=== PATIENT | male | born 1950 | race Caucasian/White ===

== ENCOUNTER 2018-10-16 04:26 | Inpatient (IN) | payer MEDICARE ==
[~2018-10-16] VITALS: Ht 170.2 cm; Wt 61.9 kg
--- NOTE | 2018-10-16 04:45 | NUR ---
FIRST CONTACT WITH PT. PT PRESENTS TO ED TOD STATING "I THINK I'M HAVING A HEART ATTACK". PT DENIES PREVIOUS CARDIAC HISTORY, BUT STATES "HEART DISEASE RUNS IN MY FAMILY". PT STATES HE IS HAVING 10/10 STERNAL CHEST PAIN WITH LEFT ARM RADIATION. ALL MONITORS IN PLACE. CALL LIGHT WITHIN REACH. AWAITING ORDERES.
--- NOTE | 2018-10-16 04:46 | NUR ---
PT'S GRAND DAUGHTER'S NUMBER [id number] MELO [phone]
[2018-10-16] MEDS ORDERED: ONDANSETRON ODT 4 MG ONE (05:06)
[2018-10-16] MEDS ORDERED: ASPIRIN 81 MG TABLET CHEW ONE (05:07)
--- NOTE | 2018-10-16 05:09 | NUR ---
PT MEDICATED PER EMAR. PT TOLERATED WELL.
[2018-10-16] MEDS ORDERED: ONDANSETRON ODT 4 MG PO ONE (05:30)
[2018-10-16] MEDS ORDERED: ASPIRIN 81 MG TABLET CHEW PO ONE (05:30)
[2018-10-16 05:33] LABS: MEAN CORPUSCULAR HEMOGLOBIN 33.7 pg (27.5-34.5); MEAN CORPUSCULAR HGB CONC 33.9 g/dL (33.2-36.2); MEAN CORPUSCULAR VOLUME 99.4 fL (81-97); MEAN PLATELET VOLUME 8.4 fL (7.4-10.4); PLATELET COUNT 265 x10^3/uL (130-400); RED BLOOD COUNT 5.03 x10^6/uL (4.38-5.82); RED CELL DISTRIBUTION WIDTH 13.6 % (9.4-14.8)
[2018-10-16] MEDS ORDERED: SODIUM CHLORIDE 0.9% 1,000 ML IV ONE (05:39)
[2018-10-16 05:40] LABS: ALBUMIN 3.8 g/dL (3.4-5.0); ANION GAP 13 mmol/L (5-15); CALCIUM 8.9 mg/dL (8.5-10.1); CHLORIDE 107 mmol/L (98-107); CREATININE 1.83 mg/dL (0.7-1.3)
[2018-10-16 05:53] LABS: TROPONIN I 0.222 ng/mL (0.000-0.045)
--- NOTE | 2018-10-16 05:56 | NUR ---
NS INFUSING AT THIS TIME. PT TOLERATED WELL.
[2018-10-16] MEDS ORDERED: SODIUM CHLORIDE FLUSH 10ML SYR IVF ONE (06:00)
[2018-10-16] MEDS ORDERED: SODIUM CHLORIDE 0.9% 1,000ML IVBOLUS ONE ×2 (06:00→08:00)
[2018-10-16 06:14] LABS: MD YES
[2018-10-16] MEDS ORDERED: GABA800T5 PO (06:15)
[2018-10-16 06:16] LABS: LYMPH#(MANUAL) 2.66 x10^3/uL (1-3.4); LYMPHS% (MANUAL) 10 % (22-44); METAMYELOCYTES# (MANUAL) 0.27 x10^3/uL (0-0); METAMYELOCYTES% (MANUAL) 1 % (0-1); MONOS#(MANUAL) 0.53 x10^3/uL (0.3-2.7); MONOS% (MANUAL) 2 % (2-9); SEG#(MANUAL) 23.14 x10^3/uL (1.8-6.8); SEGS% (MANUAL) 87 % (42-75)
[2018-10-16] MEDS ORDERED: HYDR-3245 PO (06:16)
[2018-10-16 06:17] LABS: <PLATELET ESTIMATE> ADEQUATE; <PLT MORPHOLOGY> NORMAL PLT MORPH
[2018-10-16] MEDS ORDERED: VENL150T PO (06:19)
[2018-10-16] MEDS ORDERED: MORPHINE SULFATE 4 MG/ML, 1ML ONE ×2 (06:24→07:54)
[2018-10-16] MEDS ORDERED: NITROGLYCERIN SINGLE TAB 0.4 MG SL ONE (06:24)
--- NOTE | 2018-10-16 06:28 | NUR ---
PT MEDICATED PER EMAR. PT TOLERATED WELL.
[2018-10-16 06:30] LABS: ALBUMIN 3.8 g/dL (3.4-5.0)
[2018-10-16] MEDS ORDERED: MORPHINE SULFATE 4 MG/ML, 1ML IVPush PRN (06:30)
[2018-10-16] MEDS ORDERED: HEPARIN 5,000 UNITS/ML, 1ML IV PRN (06:30)
[2018-10-16] MEDS ORDERED: HEPARIN 25,000 UNITS/500ML PMX 500 ML IV PRN (06:30)
[2018-10-16] MEDS ORDERED: NITROGLYCERIN SINGLE TAB 0.4 MG SL PRN (06:30)
[2018-10-16] MEDS ORDERED: HEPARIN 5,000 UNITS/ML, 1ML IV ONE ×2 (06:30→11:00)
[2018-10-16 06:35] LABS: BILIRUBIN, DIRECT 0.1 mg/dL (0.1-0.2); BILIRUBIN,INDIRECT 0.4 mg/dL (0.0-2.0); BILIRUBIN,TOTAL 0.5 mg/dL (0.2-1.0); TOTAL PROTEIN 8.1 g/dL (6.4-8.2)
[2018-10-16] MEDS ORDERED: HEPARIN 5,000 UNITS/ML, 1ML ONE (06:38)
[2018-10-16] MEDS ORDERED: HEPARIN 25,000 UNITS/500ML PMX 500 ML ONE (06:38)
[2018-10-16 06:42] LABS: ACETONE, SERUM Negative (Negative)
[2018-10-16] MEDS ORDERED: SODIUM CHLORIDE FLUSH 10ML SYR IVF PRN (07:00)
--- NOTE | 2018-10-16 07:11 | NUR ---
REPORT GIVEN TO SAMM LINTON.
--- NOTE | 2018-10-16 07:35 | NUR ---
Clarisa (pt's daughter) called, , asking for update. Pt gives verbal consent. Provided updated information. All questions answered.
[2018-10-16] MEDS ORDERED: PIPERACILLIN/TAZO/PMX 3.375GM 0 ML ONE (07:37)
[2018-10-16] MEDS ORDERED: MIDAZOLAM 1 MG/ML, 5ML ONE (08:00)
[2018-10-16] MEDS ORDERED: VANCOMYCIN PER PHARMACY MC ONE (08:00)
[2018-10-16] MEDS ORDERED: EPINEPHRINE 1 MG/ML, 1ML ONE (08:00)
[2018-10-16] MEDS ORDERED: SODIUM BICARB 8.4%, 50ML SYRINGE ONE ×3 (08:00→13:34)
[2018-10-16] MEDS ORDERED: ROCURONIUM 10 MG/ML,10ML ONE (08:00)
[2018-10-16] MEDS ORDERED: PROPOFOL 100 ML IV ONE (08:00)
[2018-10-16] MEDS ORDERED: PIPERACILLIN/TAZO/PMX 4.5GM 100 ML IVPB ONE (08:00)
[2018-10-16] MEDS ORDERED: VANCOMYCIN 1,200 MG in SODIUM CHLORIDE 0.9% 250 ML IV ONE (08:00)
--- NOTE | 2018-10-16 08:10 | NUR ---
Called and spoke to SHAILA Henderson. All questions answered. Pt ready to transfer to floor from ED.
[2018-10-16] MEDS ORDERED: ALBUTEROL/IPRATROPIUM 2.5MG/0.5MG, 3 ML NPPB ONE (08:30)
[2018-10-16] MEDS ORDERED: ALBUTEROL SULFATE 2.5 MG/3 ML NPPB ONE (08:35)
[2018-10-16 08:48] LABS: TROPONIN I 0.436 ng/mL (0.000-0.045)
[2018-10-16] MEDS ORDERED: KETOROLAC 30 MG/1 ML IVPush ONE (09:00)
[2018-10-16] MEDS: SODIUM CHLORIDE 0.9% 1,000 ML IV SCH ×2 (09:21→22:48)
[2018-10-16] MEDS ORDERED: PHARMACY MAY ADJ FOR RENAL FX MC PRN (09:30)
[2018-10-16] MEDS ORDERED: ACETAMINOPHEN 650 MG/20.3 ML UDC PO PRN (09:30)
[2018-10-16] MEDS ORDERED: ONDANSETRON 2MG/ML, 2ML IVPB PRN (09:30)
[2018-10-16] MEDS ORDERED: MORPHINE SULFATE 4 MG/ML, 1ML IV PRN (09:30)
[2018-10-16] MEDS ORDERED: NITROGLYCERIN 0.4 MG BOTTLE (25 TABS) SL PRN (09:30)
[2018-10-16] MEDS ORDERED: ALBUTEROL/IPRATROPIUM 2.5MG/0.5MG, 3 ML HHN SCH (10:00)
[2018-10-16] MEDS ORDERED: ALBUTEROL/IPRATROPIUM 2.5MG/0.5MG, 3 ML ONE (10:06)
--- NOTE | 2018-10-16 10:11 | NUR ---
Called SHAILA Mccarthy and provided report. All questions answered. Pt ready to transfer to floor.
--- NOTE | 2018-10-16 10:12 | NUR ---
Pt transfered to floor from ED with tech and ED RN and left with all personal belongings, [id number].
[2018-10-16 10:19] LABS: CHOL/HDL RATIO 3.7; LDL/HDL RATIO 2.2 (0.5-3.0)
[2018-10-16] MEDS ORDERED: [UNRECOGNIZED DRUG - REMARK] MC SCH (11:00)
[2018-10-16] MEDS: methylPREDNISolone SOD SUCC 125 MG/2 ML IVPush SCH ×2 (11:18→17:34)
[2018-10-16] MEDS: NICOTINE 14MG/24 HR PATCH.TD24 TD SCH (11:18)
[2018-10-16] MEDS ORDERED: AZITHROMYCIN 500 MG in SODIUM CHLORIDE 0.9% 250 ML IVPB SCH (11:30)
[2018-10-16] MEDS ORDERED: FUROSEMIDE 40 MG/4 ML ONE (12:02)
--- NOTE | 2018-10-16 12:22 | NUR ---
LATE NOTE ENTRY FOR 0845: Due to echocardiogram, and consultation with coin wrapping machine operator, pt's level of care change from Telemetry to CCU. Pt aware of change. Pt states verbal understanding. Pt is AOX4, skin is diaphoretic, warm, and intact. Pt is afebrile. Pt has productive occasional cough. Pt remains on oxygen via nasal cannula at 4.5 L oxygen to maintain SPO2% above 90%. NADN. No needs expressed. Pt provided blanket for comfort measures. Call light within reach. Pt remains connected to cardiac care nurse, NIBP, and continous pulse ox. PIV medications infusing per EMAR. Both bedrails up for safety measures.
[2018-10-16] MEDS ORDERED: CEFTRIAXONE PMX 1GM/50ML 50 ML IV SCH (12:30)
[2018-10-16] MEDS ORDERED: EPINEPHRINE 4 MG in SODIUM CHLORIDE 0.9% 246 ML IV PRN (12:30)
[2018-10-16] MEDS ORDERED: FUROSEMIDE 40 MG/4 ML IV ONE (12:30)
[2018-10-16] MEDS ORDERED: CODE BLUE RESPONSE XX ONE (12:34)
[2018-10-16] MEDS ORDERED: CALCIUM CHLORIDE 10%, 10ML SYR ONE (12:34)
[2018-10-16] MEDS ORDERED: EPINEPHRINE SYRINGE 0.1 MG/ML, 10ML ONE (12:34)
[2018-10-16 13:22] LABS: FIO2 100 %
[2018-10-16] MEDS ORDERED: LIDOCAINE-MPF 1%, 2ML ENDO PRN (13:30)
[2018-10-16] MEDS ORDERED: FENTANYL PF 100 MCG/2ML IVPush PRN (13:30)
[2018-10-16] MEDS ORDERED: SENNA 176 MG/5 ML ORAL SOL NG PRN (13:30)
[2018-10-16] MEDS ORDERED: SENNA/DOCUSATE TABLET NG PRN (13:30)
[2018-10-16] MEDS ORDERED: PHARMACY MAY ADJ FOR RENAL FX MC SCH (13:30)
[2018-10-16] MEDS ORDERED: DEXTROSE 4 GM TAB.CHEW PO PRN (13:30)
[2018-10-16] MEDS ORDERED: EPINEPHRINE 1 MG in SODIUM CHLORIDE 0.9% 249 ML IV PRN (13:30)
[2018-10-16] MEDS ORDERED: ALBUTEROL/IPRATROPIUM 2.5MG/0.5MG, 3 ML INLINE SCH (13:30)
[2018-10-16] MEDS ORDERED: BISACODYL 10 MG SUPP PR PRN (13:30)
[2018-10-16] MEDS ORDERED: GLUCAGON 1 MG IM PRN (13:30)
[2018-10-16] MEDS ORDERED: LACTULOSE 20 GM/30 ML UDC NG PRN (13:30)
[2018-10-16] MEDS ORDERED: DEXTROSE 50%, 50ML SYRINGE IVPush PRN (13:30)
[2018-10-16] MEDS ORDERED: SODIUM BICARB 8.4%, 50ML SYRINGE IVPush STA (13:53)
[2018-10-16] MEDS: HEPARIN 5,000 UNITS/ML, 1ML IV PRN (14:05)
[2018-10-16] MEDS ORDERED: SODIUM BICARBONATE 8.4% 150 MEQ in DEXTROSE 5% 1,000 ML IV SCH (14:30)
[2018-10-16] MEDS: ALBUTEROL/IPRATROPIUM 2.5MG/0.5MG, 3 ML INLINE SCH ×3 (14:31→22:22)
[2018-10-16 15:05] VITALS: BP 124/72
[2018-10-16 15:07] LABS: TRIGLYCERIDES 71 mg/dL (50-200)
[2018-10-16] MEDS: PIPERACILLIN/TAZO/PMX 3.375GM 50 ML IV SCH ×2 (15:30→22:48)
[2018-10-16] MEDS: GABAPENTIN 300 MG CAPSULE PO SCH ×2 (16:00→21:00)
[2018-10-16] MEDS ORDERED: INSULIN LISPRO 100 UNITS/ML, PEN SQ-INSULIN SCH ×2 (16:00→21:00)
[2018-10-16 16:45] LABS: MEAN CORPUSCULAR HGB CONC 32.9 g/dL (33.2-36.2); MEAN CORPUSCULAR VOLUME 100.4 fL (81-97); PLATELET COUNT 286 x10^3/uL (130-400); RED BLOOD COUNT 4.82 x10^6/uL (4.38-5.82); RED CELL DISTRIBUTION WIDTH 13.9 % (9.4-14.8)
--- NOTE | 2018-10-16 16:45 | NUR ---
TF goal recs: Promote 75 ml/hour on propofol and 80 ml/hour off propofol
[2018-10-16 16:49] LABS: ANION GAP 16 mmol/L (5-15); CALCIUM 7.9 mg/dL (8.5-10.1); CHLORIDE 107 mmol/L (98-107); CREATININE 2.36 mg/dL (0.7-1.3)
[2018-10-16] MEDS: PROPOFOL 100 ML IV PRN ×2 (16:59→21:34)
[2018-10-16 17:18] LABS: MD YES
[2018-10-16 17:20] LABS: BAND#(MANUAL) 0.29 x10^3/uL; BANDS%(MANUAL) 1 % (0-7); LYMPH#(MANUAL) 0.87 x10^3/uL (1-3.4); LYMPHS% (MANUAL) 3 % (22-44); MONOS#(MANUAL) 0.29 x10^3/uL (0.3-2.7); MONOS% (MANUAL) 1 % (2-9); SEG#(MANUAL) 27.65 x10^3/uL (1.8-6.8); SEGS% (MANUAL) 95 % (42-75)
[2018-10-16 17:21] LABS: <PLATELET ESTIMATE> ADEQUATE; <PLT MORPHOLOGY> NORMAL PLT MORPH
[2018-10-16] MEDS ORDERED: VASOPRESSIN 100 UNIT in SODIUM CHLORIDE 0.9% 495 ML IV PRN (17:30)
[2018-10-16] MEDS: NOREPINEPHRINE 4 MG in SODIUM CHLORIDE 0.9% 246 ML IV PRN (17:46)
[2018-10-16] MEDS: ATORVASTATIN 40 MG TABLET PO SCH (21:00)
[2018-10-16] MEDS: SODIUM CHLORIDE FLUSH 10ML SYR IVF SCH (21:34)
[2018-10-16] MEDS: INSULIN LISPRO 100 UNITS/ML, PEN SQ-INSULIN SCH (21:37)
[2018-10-16] MEDS ORDERED: ACETAMINOPHEN 650 MG SUPP PR PRN (23:00)
[2018-10-17] MEDS: ALBUTEROL/IPRATROPIUM 2.5MG/0.5MG, 3 ML INLINE SCH ×6 (02:03→22:46)
[2018-10-17] MEDS: methylPREDNISolone SOD SUCC 125 MG/2 ML IVPush SCH ×3 (02:09→17:31)
[2018-10-17] MEDS: NOREPINEPHRINE 4 MG in SODIUM CHLORIDE 0.9% 246 ML IV PRN (02:57)
[2018-10-17 03:51] LABS: ALANINE AMINOTRANSFERASE 200 U/L (12-78); ALBUMIN 2.5 g/dL (3.4-5.0); ANION GAP 11 mmol/L (5-15); CHLORIDE 109 mmol/L (98-107)
[2018-10-17 03:53] LABS: ALKALINE PHOSPHATASE 75 U/L (45-117); BILIRUBIN,TOTAL 0.3 mg/dL (0.2-1.0); TOTAL PROTEIN 5.5 g/dL (6.4-8.2)
[2018-10-17 04:27] LABS: MEAN CORPUSCULAR HGB CONC 33.8 g/dL (33.2-36.2); MEAN CORPUSCULAR VOLUME 97.8 fL (81-97); MEAN PLATELET VOLUME 8.9 fL (7.4-10.4); PLATELET COUNT 202 x10^3/uL (130-400); RED BLOOD COUNT 4.34 x10^6/uL (4.38-5.82); RED CELL DISTRIBUTION WIDTH 13.1 % (9.4-14.8)
[2018-10-17] MEDS: INSULIN LISPRO 100 UNITS/ML, PEN SQ-INSULIN SCH ×7 (04:43→21:44)
[2018-10-17] MEDS: ASPIRIN 325 MG TABLET EC PO SCH (04:44)
[2018-10-17 05:25] LABS: MD YES
[2018-10-17 05:27] LABS: <PLATELET ESTIMATE> ADEQUATE; <PLT MORPHOLOGY> NORMAL PLT MORPH; ANISOCYTOSIS 1+; BAND#(MANUAL) 0.37 x10^3/uL; BANDS%(MANUAL) 2 % (0-7); LYMPHS% (MANUAL) 6 % (22-44); MONOS#(MANUAL) 0.18 x10^3/uL (0.3-2.7); MONOS% (MANUAL) 1 % (2-9); SEG#(MANUAL) 16.65 x10^3/uL (1.8-6.8); SEGS% (MANUAL) 91 % (42-75)
[2018-10-17] MEDS: PIPERACILLIN/TAZO/PMX 3.375GM 50 ML IV SCH ×3 (06:16→22:40)
[2018-10-17] MEDS: PROPOFOL 100 ML IV PRN ×2 (06:22→23:23)
[2018-10-17] MEDS ORDERED: SODIUM CHLORIDE 0.9% 1,000 ML IV SCH (08:30)
[2018-10-17] MEDS ORDERED: VENLAFAXINE HCL 125 MG PO SCH (09:00)
[2018-10-17] MEDS ORDERED: FAMOTIDINE 20 MG/2 ML IV SCH (09:00)
[2018-10-17] MEDS: GABAPENTIN 300 MG CAPSULE PO SCH ×3 (09:28→21:19)
[2018-10-17] MEDS: PANTOPRAZOLE 40 MG IV IV SCH (09:28)
[2018-10-17] MEDS: NICOTINE 14MG/24 HR PATCH.TD24 TD SCH (09:28)
[2018-10-17] MEDS: VENLAFAXINE 75 MG CAP ER PO SCH (09:29)
[2018-10-17] MEDS: SODIUM CHLORIDE FLUSH 10ML SYR IVF SCH ×2 (09:29→21:20)
[2018-10-17] MEDS ORDERED: SODIUM CHLORIDE 0.9%, 500ML IVBOLUS ONE (12:00)
[2018-10-17] MEDS ORDERED: SODIUM CHLORIDE 0.9% 500 ML IV ONE (12:00)
[2018-10-17] MEDS: HEPARIN 25,000 UNITS/500ML PMX 500 ML IV PRN (17:13)
[2018-10-17] MEDS: ATORVASTATIN 40 MG TABLET PO SCH (21:19)
[2018-10-18] MEDS: ALBUTEROL/IPRATROPIUM 2.5MG/0.5MG, 3 ML INLINE SCH ×6 (02:06→22:15)
[2018-10-18] MEDS: methylPREDNISolone SOD SUCC 125 MG/2 ML IVPush SCH ×3 (02:34→17:58)
[2018-10-18] MEDS: INSULIN LISPRO 100 UNITS/ML, PEN SQ-INSULIN SCH ×8 (03:30→21:49)
[2018-10-18 05:10] LABS: ALANINE AMINOTRANSFERASE 168 U/L (12-78); ALBUMIN 2.5 g/dL (3.4-5.0); ANION GAP 11 mmol/L (5-15); CALCIUM 6.5 mg/dL (8.5-10.1); CHLORIDE 109 mmol/L (98-107); CREATININE 2.08 mg/dL (0.7-1.3)
[2018-10-18 05:12] LABS: ALKALINE PHOSPHATASE 54 U/L (45-117); BILIRUBIN,TOTAL 0.4 mg/dL (0.2-1.0); TOTAL PROTEIN 5.4 g/dL (6.4-8.2)
[2018-10-18 05:19] LABS: MEAN CORPUSCULAR HEMOGLOBIN 33.3 pg (27.5-34.5); MEAN CORPUSCULAR HGB CONC 33.7 g/dL (33.2-36.2); MEAN CORPUSCULAR VOLUME 98.8 fL (81-97); MEAN PLATELET VOLUME 9.6 fL (7.4-10.4); PLATELET COUNT 150 x10^3/uL (130-400); RED BLOOD COUNT 3.95 x10^6/uL (4.38-5.82); RED CELL DISTRIBUTION WIDTH 13.9 % (9.4-14.8)
[2018-10-18] MEDS: ASPIRIN 325 MG TABLET EC PO SCH (06:00)
[2018-10-18 06:04] LABS: BASOPHILS # (AUTO) 0.01 x10^3/uL (0-0.1); BASOPHILS % (AUTO) 0 % (0-1); EOSINOPHILS % (AUTO) 0 % (1-7); LYMPHOCYTES # (AUTO) 0.88 x10^3/uL (1-3.4); LYMPHOCYTES % (AUTO) 4 % (22-44); MD SCAN; MONOCYTES # (AUTO) 0.58 x10^3/uL (0.2-0.8); MONOCYTES % (AUTO) 3 % (2-9); NEUTROPHILS # (AUTO) 20.87 x10^3/uL (1.8-6.8); NEUTROPHILS % (AUTO) 93 % (42-75)
[2018-10-18] MEDS: PIPERACILLIN/TAZO/PMX 3.375GM 50 ML IV SCH ×3 (06:19→22:30)
[2018-10-18] MEDS ORDERED: POTASSIUM CHLORIDE 20 MEQ TAB.ER.PRT PO ONE ×2 (06:30→13:00)
[2018-10-18] MEDS: PROPOFOL 100 ML IV PRN ×3 (06:41→21:46)
[2018-10-18] MEDS: SODIUM CHLORIDE FLUSH 10ML SYR IVF SCH ×2 (08:44→21:45)
[2018-10-18] MEDS: NICOTINE 14MG/24 HR PATCH.TD24 TD SCH (08:44)
[2018-10-18] MEDS: PANTOPRAZOLE 40 MG IV IV SCH (08:44)
[2018-10-18] MEDS: GABAPENTIN 300 MG CAPSULE PO SCH ×3 (08:45→21:45)
[2018-10-18] MEDS: VENLAFAXINE 75 MG CAP ER PO SCH (08:45)
[2018-10-18] MEDS ORDERED: FUROSEMIDE 20 MG/2 ML IV ONE (09:00)
[2018-10-18] MEDS ORDERED: DEXMEDETOMIDINE 1,000 MCG in SODIUM CHLORIDE 0.9% 240 ML IV PRN (09:30)
[2018-10-18] MEDS ORDERED: FUROSEMIDE 40 MG/4 ML IV ONE (13:30)
[2018-10-18] MEDS ORDERED: NOREPINEPHRINE 1 MG/ML, 4ML ONE (15:05)
[2018-10-18] MEDS: NOREPINEPHRINE 4 MG in SODIUM CHLORIDE 0.9% 246 ML IV PRN (16:29)
[2018-10-18] MEDS: LACTOBACILLUS 1GM/ PACKET NG SCH ×2 (16:35→21:45)
[2018-10-18] MEDS: ATORVASTATIN 40 MG TABLET PO SCH (21:45)
[2018-10-18] MEDS: HEPARIN 25,000 UNITS/500ML PMX 500 ML IV PRN (22:36)
[2018-10-19] MEDS: ALBUTEROL/IPRATROPIUM 2.5MG/0.5MG, 3 ML INLINE SCH ×3 (01:57→10:00)
[2018-10-19] MEDS: methylPREDNISolone SOD SUCC 125 MG/2 ML IVPush SCH ×3 (02:29→18:13)
[2018-10-19] MEDS: INSULIN LISPRO 100 UNITS/ML, PEN SQ-INSULIN SCH ×8 (04:45→21:44)
[2018-10-19 05:09] LABS: ALANINE AMINOTRANSFERASE 173 U/L (12-78); ALBUMIN 2.7 g/dL (3.4-5.0); ANION GAP 6 mmol/L (5-15); CALCIUM 6.4 mg/dL (8.5-10.1); CHLORIDE 110 mmol/L (98-107)
[2018-10-19 05:11] LABS: ALKALINE PHOSPHATASE 60 U/L (45-117); BILIRUBIN,TOTAL 0.6 mg/dL (0.2-1.0); TOTAL PROTEIN 5.4 g/dL (6.4-8.2); TRIGLYCERIDES 125 mg/dL (50-200)
[2018-10-19 05:22] LABS: MEAN CORPUSCULAR HEMOGLOBIN 32.5 pg (27.5-34.5); MEAN CORPUSCULAR HGB CONC 32.8 g/dL (33.2-36.2); MEAN CORPUSCULAR VOLUME 98.9 fL (81-97); MEAN PLATELET VOLUME 9.5 fL (7.4-10.4); PLATELET COUNT 116 x10^3/uL (130-400); RED BLOOD COUNT 3.69 x10^6/uL (4.38-5.82); RED CELL DISTRIBUTION WIDTH 13.8 % (9.4-14.8)
[2018-10-19] MEDS: ASPIRIN 325 MG TABLET EC PO SCH (06:05)
[2018-10-19] MEDS: PIPERACILLIN/TAZO/PMX 3.375GM 50 ML IV SCH ×3 (06:05→22:55)
[2018-10-19 06:09] LABS: BASOPHILS # (AUTO) 0.07 x10^3/uL (0-0.1); BASOPHILS % (AUTO) 0 % (0-1); EOSINOPHILS # (AUTO) 0.01 x10^3/uL (0-0.4); EOSINOPHILS % (AUTO) 0 % (1-7); LYMPHOCYTES # (AUTO) 0.72 x10^3/uL (1-3.4); LYMPHOCYTES % (AUTO) 5 % (22-44); MONOCYTES # (AUTO) 0.41 x10^3/uL (0.2-0.8); MONOCYTES % (AUTO) 3 % (2-9); NEUTROPHILS # (AUTO) 13.91 x10^3/uL (1.8-6.8); NEUTROPHILS % (AUTO) 92 % (42-75)
[2018-10-19 06:10] LABS: MD SCAN
[2018-10-19] MEDS: HEPARIN 5,000 UNITS/ML, 1ML IV PRN (06:33)
[2018-10-19] MEDS ORDERED: POTASSIUM CHLORIDE 10% 40 MEQ/30 ML UDC NG ONE (08:30)
[2018-10-19] MEDS: VENLAFAXINE 75 MG CAP ER PO SCH (08:34)
[2018-10-19] MEDS: LACTOBACILLUS 1GM/ PACKET NG SCH ×3 (08:34→21:19)
[2018-10-19] MEDS: FUROSEMIDE 40 MG/4 ML IV SCH ×3 (08:34→21:19)
[2018-10-19] MEDS: GABAPENTIN 300 MG CAPSULE PO SCH ×3 (08:34→21:19)
[2018-10-19] MEDS: SODIUM CHLORIDE FLUSH 10ML SYR IVF SCH ×2 (08:34→21:20)
[2018-10-19] MEDS: PANTOPRAZOLE 40 MG IV IV SCH (08:34)
[2018-10-19] MEDS: NICOTINE 14MG/24 HR PATCH.TD24 TD SCH (08:34)
[2018-10-19] MEDS: POTASSIUM CHLORIDE 20 MEQ PACKET PO SCH ×2 (09:30→15:51)
[2018-10-19] MEDS: ALBUTEROL/IPRATROPIUM 2.5MG/0.5MG, 3 ML NPPB SCH ×4 (11:00→23:00)
[2018-10-19 11:03] LABS: HIT RESULT POSITIVE (NEGATIVE)
[2018-10-19] MEDS: QUETIAPINE 25MG TABLET PO SCH ×2 (11:49→21:20)
[2018-10-19] MEDS: BUDESONIDE 0.5 MG/2 ML INHA INH SCH (19:11)
[2018-10-19] MEDS: ATORVASTATIN 40 MG TABLET PO SCH (21:19)
[2018-10-20] MEDS: ALBUTEROL/IPRATROPIUM 2.5MG/0.5MG, 3 ML NPPB SCH ×3 (02:04→10:23)
[2018-10-20] MEDS: methylPREDNISolone SOD SUCC 125 MG/2 ML IVPush SCH ×2 (02:45→08:37)
[2018-10-20] MEDS: INSULIN LISPRO 100 UNITS/ML, PEN SQ-INSULIN SCH ×5 (04:00→16:29)
[2018-10-20 04:45] LABS: BASOPHILS # (AUTO) 0.05 x10^3/uL (0-0.1); BASOPHILS % (AUTO) 0 % (0-1); EOSINOPHILS # (AUTO) 0.02 x10^3/uL (0-0.4); EOSINOPHILS % (AUTO) 0 % (1-7); LYMPHOCYTES # (AUTO) 1.01 x10^3/uL (1-3.4); LYMPHOCYTES % (AUTO) 7 % (22-44); MD NO; MEAN CORPUSCULAR HEMOGLOBIN 33.5 pg (27.5-34.5); MEAN CORPUSCULAR HGB CONC 33.7 g/dL (33.2-36.2); MEAN CORPUSCULAR VOLUME 99.3 fL (81-97); MEAN PLATELET VOLUME 9.9 fL (7.4-10.4); MONOCYTES # (AUTO) 0.29 x10^3/uL (0.2-0.8); MONOCYTES % (AUTO) 2 % (2-9); NEUTROPHILS # (AUTO) 13.85 x10^3/uL (1.8-6.8); NEUTROPHILS % (AUTO) 91 % (42-75); PLATELET COUNT 112 x10^3/uL (130-400); RED CELL DISTRIBUTION WIDTH 13.9 % (9.4-14.8)
[2018-10-20 04:56] LABS: ANION GAP 9 mmol/L (5-15); CALCIUM 6.8 mg/dL (8.5-10.1); CHLORIDE 107 mmol/L (98-107)
[2018-10-20] MEDS: OXYcodone IR 5MG TABLET PO PRN ×2 (05:55→12:01)
[2018-10-20] MEDS ORDERED: ASPIRIN 81 MG TABLET EC PO SCH (06:00)
[2018-10-20] MEDS: PIPERACILLIN/TAZO/PMX 3.375GM 50 ML IV SCH ×2 (06:34→14:13)
[2018-10-20] MEDS: BUDESONIDE 0.5 MG/2 ML INHA INH SCH (06:51)
[2018-10-20] MEDS: LACTOBACILLUS 1GM/ PACKET NG SCH ×2 (08:34→16:20)
[2018-10-20] MEDS: GABAPENTIN 300 MG CAPSULE PO SCH ×2 (08:35→16:20)
[2018-10-20] MEDS: VENLAFAXINE 75 MG CAP ER PO SCH (08:35)
[2018-10-20] MEDS: NICOTINE 14MG/24 HR PATCH.TD24 TD SCH (08:36)
[2018-10-20] MEDS: SODIUM CHLORIDE FLUSH 10ML SYR IVF SCH (08:38)
[2018-10-20] MEDS ORDERED: POTASSIUM CHLORIDE 20 MEQ TAB.ER.PRT PO ONE (09:00)
[2018-10-20] MEDS ORDERED: FONDAPARINUX 2.5 MG/0.5 ML SQ SCH (09:00)
[2018-10-20] MEDS: CARVEDILOL 3.125 MG TABLET PO SCH ×2 (09:49→17:10)
[2018-10-20] MEDS: FUROSEMIDE 40 MG/4 ML IV SCH ×2 (09:50→17:10)
[2018-10-20] MEDS ORDERED: EPINEPHRINE SYRINGE 0.1 MG/ML, 10ML ONE ×3 (15:00→17:55)
[2018-10-20] MEDS ORDERED: ATROPINE SYRINGE 0.1 MG/ML, 10ML ONE (15:00)
[2018-10-20] MEDS ORDERED: PANTOPRAZOLE 20MG TABLET PO SCH (16:00)
[2018-10-20] MEDS ORDERED: CODE BLUE RESPONSE XX ONE (17:55)
[2018-10-20] MEDS ORDERED: VECURONIUM 10 MG ONE (17:55)
[2018-10-20] MEDS ORDERED: SODIUM BICARBONATE 1 MEQ/ML, 50ML VIAL ONE (17:55)
[2018-10-20] MEDS ORDERED: CALCIUM CHLORIDE 10%, 10ML SYR ONE (17:55)
[2018-10-20] MEDS ORDERED: methylPREDNISolone SOD SUCC 40 MG/ML IVPush SCH (18:00)
[2018-10-20] MEDS ORDERED: EPINEPHRINE 2 MG in SODIUM CHLORIDE 0.9% 248 ML IV PRN ×2 (18:15→19:30)
[2018-10-20] MEDS ORDERED: FENTANYL PF 100 MCG/2ML IVPush ONE (18:15)
[2018-10-20] MEDS ORDERED: FENTANYL PF 100 MCG/2ML ONE (18:15)
[2018-10-20] MEDS ORDERED: PROPOFOL 0 ML IV ONE (18:20)
[2018-10-20] MEDS ORDERED: VECURONIUM 10 MG IVPush ONE (18:20)
[2018-10-20] MEDS ORDERED: morphine SULFATE 10 MG/ML, 1ML ONE (18:50)
[2018-10-20] MEDS ORDERED: morphine SULFATE 10 MG/ML, 1ML IVPush ONE (18:50)
[2018-10-20] MEDS ORDERED: morphine SULFATE 10 MG/ML, 1ML IV STA (19:08)
[2018-10-20] MEDS ORDERED: LORazepam 2 MG/ML, 1ML IVPush PRN ×2 (19:30)
[2018-10-20] MEDS ORDERED: morphine SULFATE 10 MG/ML, 1ML IVPush PRN ×2 (19:30)
[2018-10-20] MEDS ORDERED: ATROPINE OPHTH SOLN 1%, 5ML PO PRN (19:30)
== END 2018-10-20 22:03 | disposition expired | DRG 871 ==
LOC: ED 06:31 → EDIP 06:32 → ED 06:40 → CCU 10:27
PROVIDERS: ADMIT Internal Medicine; ATTEND Internal Medicine
PROC: 5A12012 Performance of Cardiac Output, Single, Manual (ICD-10-PCS; 2018-10-16)
PROC: 03HY32Z Insertion of Monitoring Device into Upper Artery, Percutaneous Approach (ICD-10-PCS; 2018-10-16)
PROC: 4A133B1 Monitoring of Arterial Pressure, Peripheral, Percutaneous Approach (ICD-10-PCS; 2018-10-16)
PROC: 4A133J1 Monitoring of Arterial Pulse, Peripheral, Percutaneous Approach (ICD-10-PCS; 2018-10-16)
PROC: 0BH17EZ Insertion of Endotracheal Airway into Trachea, Via Natural or Artificial Opening (ICD-10-PCS; principal; 2018-10-18)
PROC: 5A1935Z Respiratory Ventilation, Less than 24 Consecutive Hours (ICD-10-PCS; 2018-10-18)
PROC: 02HV33Z Insertion of Infusion Device into Superior Vena Cava, Percutaneous Approach (ICD-10-PCS; 2018-10-18)
PROC: B548ZZA Ultrasonography of Superior Vena Cava, Guidance (ICD-10-PCS; 2018-10-18)
DX: A41.9 Sepsis, unspecified organism (principal); J18.9 Pneumonia, unspecified organism; J96.01 Acute respiratory failure with hypoxia; I21.4 Non-ST elevation (NSTEMI) myocardial infarction; N17.0 Acute kidney failure with tubular necrosis; K72.00 Acute and subacute hepatic failure without coma; R65.21 Severe sepsis with septic shock; G93.41 Metabolic encephalopathy; I50.43 Acute on chronic combined systolic (congestive) and diastolic (congestive) heart failure; E87.2 Acidosis; Z99.11 Dependence on respirator [ventilator] status; J44.0 Chronic obstructive pulmonary disease with (acute) lower respiratory infection; I42.9 Cardiomyopathy, unspecified; J44.1 Chronic obstructive pulmonary disease with (acute) exacerbation; I20.0 Unstable angina; G89.29 Other chronic pain; J84.89 Other specified interstitial pulmonary diseases; G47.33 Obstructive sleep apnea (adult) (pediatric); Z66 Do not resuscitate; Z51.5 Encounter for palliative care; F17.210 Nicotine dependence, cigarettes, uncomplicated; T38.0X5A Adverse effect of glucocorticoids and synthetic analogues, initial encounter; I27.20 Pulmonary hypertension, unspecified; I08.3 Combined rheumatic disorders of mitral, aortic and tricuspid valves; D75.82 Heparin induced thrombocytopenia (HIT); D75.1 Secondary polycythemia; E87.6 Hypokalemia; M54.9 Dorsalgia, unspecified; I46.9 Cardiac arrest, cause unspecified; Z88.2 Allergy status to sulfonamides; Z90.49 Acquired absence of other specified parts of digestive tract; Z90.89 Acquired absence of other organs; Z82.49 Family history of ischemic heart disease and other diseases of the circulatory system; Z79.82 Long term (current) use of aspirin; Z79.899 Other long term (current) drug therapy
CPT/HCPCS: 36415; 36573; 36600; 71045; 80048; 80053; 80061; 80076; 82010; 82040; 82330; 82533; 82542; 82803; 82962; 83036; 83605; 83690; 83735; 83880; 84100; 84478; 84484; 85025; 85520; 86022; 87040; 87070; 87081; 87086; 87205; 92950; 93005; 93306; 93970; 94002; 94003; 94150; 94640; 96361; 96365; 96366; 99291; G0378; J0171; J0456; J0461; J0696; J1644; J1885; J1940; J2250; J2543; J2704; J3010; J3370; J7070; J7620; J7626; Q0162; C1751; C9113; J1652; J1815; J2270; J2920; J2930; J7030; J7040; J7050